=== PATIENT | male | born 1970 | race Caucasian/White ===

== ENCOUNTER → 2021-08-15 | Outpatient (CLI) | payer OTHER ==
--- NOTE | 2021-08-16 10:31 | KCIC ---
XR LUMBAR SPINE 2-3V History: Chronic right lower back pain. Comparison: None. Technique: 4 views of the lumbar spine. Findings: There is transitional lumbosacral anatomy with rudimentary riblets at the L1 segment and a rectangula r shaped L6 with rudimentary L6-S1 disc and sacralized transverse processes. There is no evidence of fracture. No destructive osseous lesions. Alignment is normal. Lumbar facet hypertrophy L4-L5 and L5-L6. Mild disc space narrowing L4-L5 and L5-L6. Rudimentary L6 S1 disc. Sacroiliac joints are unremarkable. Soft tissues are unremarkable. IMPRESSION: 1. Transitional lumbosacral anatomy. 2. Lower lumbar spondylosis without acute findings. Electronically signed by: Camilo Guo MD (08/16/2021 10:28 AM) [id number]
== END ==
LOC: KCIC 14:24
PROVIDERS: ATTEND Family Medicine
DX: M47.816 Spondylosis without myelopathy or radiculopathy, lumbar region (principal); M48.061 Spinal stenosis, lumbar region without neurogenic claudication; M43.27 Fusion of spine, lumbosacral region
CPT/HCPCS: 72100